=== PATIENT | male | born 1980 | race American Indian/Alaskan Native ===

== ENCOUNTER 2019-02-06 12:06 | Emergency (ER) | payer SELFPAY ==
[2019-02-06 12:22] VITALS: BP 149/88
--- NOTE | 2019-02-06 12:22 | Emergency Department Report ---
Blank Doc - Documentation Documentation: 38 y o mlae presents stating he had bleeding from left ear x yesterday woke up this morning mildly resolved but still some blood denies trauma,injuries, recent illness,URI No blood visualized on outer surface ACC eval
--- NOTE | 2019-02-06 13:25 | Emergency Department Report ---
ED ENT HPI - General Chief complaint: Earache Stated complaint: (L) EAR BLEEDING/HEADACHE Time Seen by Provider: 02/06/19 12:20 Source: patient Mode of arrival: Ambulatory Limitations: No Limitations - History of Present Illness complaint: ear pain Location: L ear Severity: moderate Severity scale (0 -10): 4 Quality: aching Consistency: constant - Related Data Allergies Allergy/AdvReac Type Severity Reaction Status Date / Time No Known Allergies Allergy Verified 02/06/19 12:21 ED Dental HPI - General Chief complaint: Earache Stated complaint: (L) EAR BLEEDING/HEADACHE Time Seen by Provider: 02/06/19 12:20 Source: patient Mode of arrival: Ambulatory Limitations: No Limitations - Related Data Allergies Allergy/AdvReac Type Severity Reaction Status Date / Time No Known Allergies Allergy Verified 02/06/19 12:21 ED Review of Systems ROS: Stated complaint: (L) EAR BLEEDING/HEADACHE Other details as noted in HPI Comment: All other systems reviewed and negative Constitutional: denies: chills, fever ENT: denies: congestion Respiratory: denies: cough, shortness of breath Cardiovascular: denies: chest pain, palpitations Gastrointestinal: denies: abdominal pain, nausea, vomiting Neurological: denies: headache, weakness, numbness, paresthesias ED Past Medical Hx - Past Medical History Previous Medical History?: No - Surgical History Past Surgical History?: No - Social History Smoking Status: Never Smoker Substance Use Type: None ED Physical Exam - General Limitations: No Limitations General appearance: alert, in no apparent distress - Head Head exam: Present: atraumatic, normocephalic, normal inspection - Eye Eye exam: Present: normal appearance, PERRL - ENT ENT exam: Present: normal orophraynx, other (left tympanic membrane erythema, dried blood) ED Course Vital Signs 02/06/19 12:20 Temperature 98 F Pulse Rate 80 Respiratory 16 Rate Blood Pressure 149/88 O2 Sat by Pulse 100 Oximetry Critical care attestation.: If time is entered above; I have spent that time in minutes in the direct care of this critically ill patient, excluding procedure time. ED Disposition Clinical Impression: Otitis media Disposition: DC-01 TO HOME OR SELFCARE Is pt being admited?: No Condition: Stable Instructions: Otitis Media (ED) Referrals: AIDEE JEFFERSON MD [Primary Care Provider] - 3-5 Days
== END 2019-02-06 13:36 | disposition home or self-care (01) ==
LOC: ED 12:06
DX: H66.92 Otitis media, unspecified, left ear (principal)
CPT/HCPCS: 99281

== ENCOUNTER 2021-10-09 14:21 | Emergency (ER) | payer SELFPAY ==
[2021-10-09 15:06] VITALS: BP 131/78
--- NOTE | 2021-10-09 15:52 | Emergency Department Report ---
ED General Adult HPI - General Chief complaint: Skin/Abscess/Foreign Body Stated complaint: SPIDER BITE Time Seen by Provider: 10/09/21 15:14 Source: patient Mode of arrival: Ambulatory Limitations: No Limitations - History of Present Illness Initial comments: 41-year-old -[place] male patient presents with complaints of a possible spider bite to his left mid back. He states he noticed a very tiny red bump upon waking this morning. He states it is mildly painful. He denies any itching, fever/chills/sweats, or swelling to the area. - Related Data Previous Rx's Medication Instructions Recorded Last Taken Type Amoxicillin [Amoxicillin TAB] 875 mg PO BID #14 tablet 02/06/19 Unknown Rx Allergies Allergy/AdvReac Type Severity Reaction Status Date / Time No Known Allergies Allergy Verified 02/06/19 12:21 ED Review of Systems ROS: Stated complaint: SPIDER BITE Other details as noted in HPI Constitutional: denies: chills, fever, malaise Skin: denies: rash, pruritus Neurological: denies: headache ED Past Medical Hx - Social History Smoking Status: Never Smoker Substance Use Type: None - Medications Home Medications: Home Medications Medication Instructions Recorded Confirmed Last Taken Type Amoxicillin [Amoxicillin TAB] 875 mg PO BID #14 tablet 02/06/19 Unknown Rx ED Physical Exam - General Limitations: No Limitations General appearance: alert, in no apparent distress - Head Head exam: Present: atraumatic, normocephalic - Eye Eye exam: Present: normal appearance - Respiratory Respiratory exam: Absent: respiratory distress - Cardiovascular Cardiovascular Exam: Present: regular rate - Neurological Exam Neurological exam: Present: alert, oriented X3 - Psychiatric Psychiatric exam: Present: normal affect, normal mood - Skin Skin exam: Present: warm, dry, intact, other (Tiny singular pustule noted to left lateral back (appears to be a pimple) without surrounding erythema or cellulitic changes noted). Absent: rash ED Course Vital Signs 10/09/21 15:05 Temperature 97.8 F Pulse Rate 76 Respiratory 16 Rate Blood Pressure 131/78 [Right] O2 Sat by Pulse 100 Oximetry ED Medical Decision Making - Medical Decision Making 41-year-old -[place] male patient presents with complaints of a possible spider bite to his left mid back. He states he noticed a very tiny red bump upon waking this morning. He states it is mildly painful. He denies any itching, fever/chills/sweats, or swelling to the area. Small pimple noted on exam. Recommend Neosporin for a few days. Patient to follow-up with primary care doctor as needed. He is well-appearing, stable for discharge. Discussed signs symptoms that should prompt immediate return to the ED with patient who verbalizes Critical care attestation.: If time is entered above; I have spent that time in minutes in the direct care of this critically ill patient, excluding procedure time. ED Disposition Clinical Impression: Skin pimple Disposition: 01 HOME / SELF CARE / HOMELESS Is pt being admited?: No Condition: Stable Instructions: Acne, [id number] Referrals: [facility] [Provider Group] - as needed Forms: Work/School Release Form(ED)
== END 2021-10-09 16:21 | disposition home or self-care (01) ==
LOC: ED 14:21
DX: R23.8 Other skin changes (principal)
CPT/HCPCS: 99281